=== PATIENT | female | born 1985 | race African-American/Black ===

== ENCOUNTER 2017-12-04 12:02 | Emergency (ER) | payer MEDICAID ==
[~2017-12-04] VITALS: Ht 170.2 cm; Wt 106.6 kg
[2017-12-04 12:10] VITALS: BP_SYST 121
[2017-12-04] MEDS ORDERED: MECLIZINE HCL 25 MG TABLET (ANITVERT) PO ONE (12:45)
[2017-12-04] MEDS ORDERED: ONDANSETRON 4 MG ODT TAB PO ONE (12:45)
[2017-12-04 13:32] VITALS: BP_SYST 112
== END 2017-12-04 13:32 | disposition home or self-care (01) ==
LOC: SED 12:02
DX: R42 Dizziness and giddiness (principal); J45.909 Unspecified asthma, uncomplicated
CPT/HCPCS: 99283; J8597; Q0162

== ENCOUNTER 2018-08-05 13:32 | Emergency (ER) | payer MEDICAID ==
[~2018-08-05] VITALS: Ht 170.2 cm; Wt 97.5 kg
[2018-08-05 13:41] VITALS: BP_SYST 108
[2018-08-05 14:23] VITALS: BP_SYST 110
== END 2018-08-05 14:23 | disposition home or self-care (01) ==
LOC: SED 13:32
DX: K52.9 Noninfective gastroenteritis and colitis, unspecified (principal); J45.909 Unspecified asthma, uncomplicated
CPT/HCPCS: 81002; 81025; 99283

== ENCOUNTER 2018-10-13 18:58 | Emergency (ER) | payer MEDICAID ==
[~2018-10-13] VITALS: Ht 172.7 cm; Wt 114.3 kg
[2018-10-13 19:12] VITALS: BP_SYST 129
[2018-10-13] MEDS ORDERED: IBUPROFEN 800 MG TABLET PO ONE (21:00)
[2018-10-13] MEDS ORDERED: SULFAMETHOXAZOLE/TRIMETHOPR DS 1 TABLET PO ONE (21:00)
[2018-10-13 21:05] VITALS: BP_SYST 120
== END 2018-10-13 21:05 | disposition home or self-care (01) ==
LOC: SED 18:58
DX: L03.012 Cellulitis of left finger (principal); R03.0 Elevated blood-pressure reading, without diagnosis of hypertension; J45.909 Unspecified asthma, uncomplicated
CPT/HCPCS: 81025; 99283

== ENCOUNTER 2019-01-16 09:09 | Emergency (ER) | payer MEDICAID ==
[~2019-01-16] VITALS: Ht 172.7 cm; Wt 102.1 kg
[2019-01-16 09:17] VITALS: BP_SYST 127
--- NOTE | 2019-01-16 09:20 | NUR ---
Patient to ER bed 7 to gown for evaluation. Side rails up. Assumed care.
--- NOTE | 2019-01-16 09:26 | NUR ---
Brady arrived via POV, AAOx4, and ambulatory with steady gait. Patient c/c of right eye pain, left ear pain, post nasal drip, and mild cough. Patient denies fever, chills, and shortness of breath. Patient states she has followed up with her PMD and feels like they're treating her for migraines, she has requested an ENT referrel, not given by PMD. States she has history of asthma, no other history. Will continue to follow up and monitor.
--- NOTE | 2019-01-16 09:30 | NUR ---
ER at bedside examining patient.
[2019-01-16] MEDS ORDERED: KETOROLAC TROMETHAMINE 30 MG VIAL IVP ONE (09:45)
[2019-01-16 10:12] LABS: BASOPHILS % (AUTO) 0.7 % (0.0-2.0); EOSINOPHILS # (AUTO) 0.1 K/uL (0.0-0.4); EOSINOPHILS % (AUTO) 2.3 % (0.0-4.0); HEMATOCRIT 36.8 % (36-48); HEMOGLOBIN 11.7 g/dL (12.0-16.0); LYMPHOCYTES # (AUTO) 1.8 K/uL (1.0-5.5); MEAN CORPUSCULAR HEMOGLOBIN 24 pg (27-31); MEAN CORPUSCULAR HGB CONC 32 % (32-36); MEAN CORPUSCULAR VOLUME 75 fL (79.0-98.0); MONOCYTES # (AUTO) 0.3 K/uL (0.0-1.0); MONOCYTES % (AUTO) 6.3 % (1.7-9.3); NEUTROPHILS # (AUTO) 2.3 K/uL (1.8-7.7); NEUTROPHILS % (AUTO) 50.7 % (40.0-70.0); PLATELET COUNT (AUTO) 243 K/uL (130-430); RED BLOOD CELL COUNT(AUTO) 4.94 MIL/uL (4.2-6.2); RED CELL DISTRIBUTION WIDTH 17.4 % (9.0-15.0); WHITE BLOOD COUNT (AUTO) 4.5 K/uL (4.8-10.8)
--- NOTE | 2019-01-16 10:23 | NUR ---
Pain reassessed for patient, patient resting comfortably, needs are met at this time. Patient aware we are waiting for lab results. Will continue to follow up and monitor.
[2019-01-16 10:36] LABS: CALCIUM 8.7 mg/dL (8.4-11.0); CREATININE 0.76 mg/dL (0.55-1.30); POTASSIUM 3.9 mmol/L (3.5-5.1)
[2019-01-16 10:41] LABS: ALBUMIN 3.1 g/dL (3.4-4.8); TOTAL BILIRUBIN 0.4 mg/dL (0.0-1.0)
[2019-01-16 11:06] VITALS: BP_SYST 124
--- NOTE | 2019-01-16 11:06 | NUR ---
Patient given written and verbal discharge instructions and verbalizes understanding. ER MD discussed with patient the results and treatment provided. Patient in stable condition. ID arm band removed. IV catheter removed intact and dressing applied, no active bleeding. Rx of Sudafed, Chloraseptic spray, Tylenol, and Bactrim given. Patient educated on pain management and to follow up with PMD. Pain Scale 0/10. Opportunity for questions provided and answered. Medication side effect fact sheet provided.
== END 2019-01-16 11:06 | disposition home or self-care (01) ==
LOC: SED 09:09
DX: J01.90 Acute sinusitis, unspecified (principal); J06.9 Acute upper respiratory infection, unspecified; J02.9 Acute pharyngitis, unspecified; R05 Cough; R51 Headache; R09.81 Nasal congestion
CPT/HCPCS: 36415; 80053; 85025; 86403; 87081; 96374; 99283; J1885

== ENCOUNTER 2019-08-08 20:06 | Emergency (ER) | payer MEDICAID ==
[~2019-08-08] VITALS: Ht 170.2 cm; Wt 102.1 kg
[2019-08-08 20:30] VITALS: BP_SYST 105
--- NOTE | 2019-08-08 21:08 | NUR ---
Patient left without being seen. No further treament provided. ER MD aware
--- NOTE | 2019-08-08 21:08 | NUR ---
Pt did not want to wait for evaluation
== END 2019-08-08 21:08 | disposition left against medical advice (07) ==
LOC: SED 20:06
DX: R51 Headache (principal); R07.89 Other chest pain; Z53.21 Procedure and treatment not carried out due to patient leaving prior to being seen by health care provider

== ENCOUNTER 2022-05-27 16:16 | Emergency (ER) | payer MEDICAID ==
[~2022-05-27] VITALS: Ht 170.2 cm; Wt 102.1 kg
--- NOTE | 2022-05-27 16:30 | NUR ---
Pt brought by self, A&Ox4, pt presents to ER with R lower leg pain ,denies trauma, skin pink and warm , cap refill <3, VSS
[2022-05-27 16:42] VITALS: BP_SYST 123
--- NOTE | 2022-05-27 17:10 | NUR ---
Dr Bailon evaluating patient in the triage room
[2022-05-27] MEDS ORDERED: KETOROLAC TROMETHAMINE 60 MG/2 ML VIAL IM ONE (17:30)
[2022-05-27] MEDS ORDERED: IBUP-1971 PO (20:28)
[2022-05-27] MEDS ORDERED: HYDR-3927 PO (20:28)
[2022-05-27 21:08] VITALS: BP_SYST 123
--- NOTE | 2022-05-27 21:09 | NUR ---
Patient given written and verbal discharge instructions and verbalizes understanding. ER MD discussed with patient the results and treatment provided. Patient in stable condition. ID arm band removed. Rx of Motrin and Gary given. Patient educated on pain management and to follow up with PMD. Pain Scale 2/10. Opportunity for questions provided and answered. Medication side effect fact sheet provided.
== END 2022-05-27 21:08 | disposition home or self-care (01) ==
LOC: SED 16:16
DX: S86.111A Strain of other muscle(s) and tendon(s) of posterior muscle group at lower leg level, right leg, initial encounter (principal); J45.909 Unspecified asthma, uncomplicated; Z79.899 Other long term (current) drug therapy; X58.XXXA Exposure to other specified factors, initial encounter; Y93.89 Activity, other specified; Y92.89 Other specified places as the place of occurrence of the external cause; Y99.8 Other external cause status
CPT/HCPCS: 99284; 93971; 96372; J1885